=== PATIENT | female | born 1990 | race Caucasian/White ===

== ENCOUNTER 2018-04-25 03:34 | Outpatient (CLI) | payer OTHER ==
[2018-04-25 04:15] VITALS: BP 113/76
[2018-04-25] MEDS ORDERED: SODIUM CHLORIDE FLUSH 0.9% 10 ML SYRINGE ONE (04:56)
[2018-04-25] MEDS ORDERED: TERBUTALINE 1 MG/ML VIAL SUBQ ONE (05:16)
[2018-04-25 05:36] LABS: BILIRUBIN,URINE NEGATIVE (NEGATIVE); GLUCOSE, URINE (UA) NEGATIVE (NEGATIVE); KETONES,URINE (UA) NEGATIVE (NEGATIVE); LEUKOCYTE ESTERASE, URINE NEGATIVE (NEGATIVE); NITRITE,URINE NEGATIVE (NEGATIVE); OCCULT BLOOD,URINE NEGATIVE (NEGATIVE); PH,URINE 6.5 PH (5.0-7.5); PROTEIN,URINE NEGATIVE (NEGATIVE); UROBILINOGEN,URINE 0.2 (NORMAL) E.U./dL (NORMAL)
[2018-04-25 05:48] LABS: CLARITY,URINE CLEAR (CLEAR)
[2018-04-25 06:00] LABS: BACTERIA,URINE Rare /HPF (None Seen); RBC,URINE None Seen /HPF (0-5); SQUAMOUS EPITHELIAL CELL,UR MOD Squamous (<= Few)
--- NOTE | 2018-04-25 06:51 | PROVIDER PROGRESS NOTE ---
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 Patient presented to L&D with regular uterine contraction approx q 9 min, painful in intensity rated 7/10. Denies VB or LOF, no recent coitus. Twins have been concordant in growth on US. Main issue besides Denver-Di nature of is maternal anemia, with a maternal anemia of 25.7% on 04/20/18, for which patient is being considered for Fe infusion. Records from [facility] in [place] obtained and reviewed.. Current Medications: Synthroid PNV Fe Rx for yeast prn Baby ASA (Increased risk HTN with twins) Patient admits to taking her synthroid regularly because she takes that on an empty stomach first thing in the morning when she wakes up, but then goes to work and forgets to take her other meds. O: VSS/AF, maternal pulse 90 NST, RFHR x2 on twins, with contractions q7-9 min on toco V/V: no external lesions, no blood or evidence of LOF on exam. Some thick cheesy d/c consistent with hx of yeast infection noted. No malodorous d/c noted. Cx: looks visually closed. Cx exam confirms L/C cervix Wet Prep: Few Epithelial cells noted, but + for clue cells Tests Ordered: Aptima (send out) UA Neg for nit/le GC/CT (pending) GBS (pending) A/P: # 27 yo 27 3/7 weeks with Monochorionic-Diamniotic twin with contractions which stopped almost immediately after one dose SQ terbutaline 0.25 mg and p.o. hydration, patient no longer feels them and they are no longer detected on monitor. # BV on wet prep: Rx flagyl 500 mg p.o. bid x 7 days (Script given) # Anemia: Encouraged to take her Fe as prescribed, with suggestions on remembering to take her Rx (ie. BR, bedside reminders). Patient education on importance with twin to treat anemia with Fe. Patient voiced understan marichuy. # Rx Folate 1 mg daily for twin gestation (Script given for #100: one p.o. daily) # Home with PTL precautions. F/U here or other facility prn contractions or any other concerns. # F/U with regular OB provider and MFM as scheduled. Objective - Vital Signs/Intake & Output Vital Signs: Vital Signs x48h Temp Pulse Resp BP Pulse Ox 04/25/18 03:45 36.7 C 90 18 113/76 100 - Lab Results Other Labs: Lab Results x24hrs 04/25/18 Range/Units 04:50 Urine Color YELLOW Urine Clarity CLEAR (CLEAR) Urine pH 6.5 (5.0-7.5) PH Ur Specific [place] 1.020 (1.002-1.030) Urine Protein NEGATIVE (NEGATIVE) mg/dL Urine Glucose (UA) NEGATIVE (NEGATIVE) mg/dL Urine Ketones NEGATIVE (NEGATIVE) mg/dL Urine Occult Blood NEGATIVE (NEGATIVE) Urine Nitrite NEGATIVE (NEGATIVE) Urine Bilirubin NEGATIVE (NEGATIVE) Urine Urobilinogen 0.2 (NORMAL) (NORMAL) E.U./dL Ur Leukocyte Esterase NEGATIVE (NEGATIVE) Urine RBC None Seen (0-5) /HPF Urine WBC 0-3 (0-5) /HPF Ur Squamous Epith Cells MOD Squamous H (<= Few) Urine Bacteria Rare (None Seen) /HPF Urine Culture Comments NOT INDICATED
== END 2018-04-25 06:40 | disposition home or self-care (01) ==
LOC: WFO 03:34 → FBP 03:35 → WFO 06:40
PROVIDERS: ATTEND Obstetrics & Gynecology
DX: O30.032 Twin pregnancy, monochorionic/diamniotic, second trimester (principal); Z3A.27 27 weeks gestation of pregnancy; O60.02 Preterm labor without delivery, second trimester
CPT/HCPCS: 81001; 87081; 87086; 87480; 87491; 87510; 87591; 87660; 96374; 99214

== ENCOUNTER 2018-05-03 21:33 | Outpatient (CLI) | payer OTHER ==
[2018-05-03 23:52] VITALS: BP 107/65
== END 2018-05-04 00:01 | disposition home or self-care (01) ==
LOC: WFO 21:33 → FBP 21:35 → WFO 05-04 00:01
PROVIDERS: ATTEND Obstetrics & Gynecology
DX: O36.8132 Decreased fetal movements, third trimester, fetus 2 (principal); O30.003 Twin pregnancy, unspecified number of placenta and unspecified number of amniotic sacs, third trimester; Z3A.28 28 weeks gestation of pregnancy
CPT/HCPCS: 59025; 99213

== ENCOUNTER 2018-07-11 12:46 | Outpatient (CLI) | payer OTHER | END 2018-07-11 12:47 | disposition home or self-care (01) | LOC: DI 12:46 | PROVIDERS: ATTEND Family Medicine | DX: Z82.79 Family history of other congenital malformations, deformations and chromosomal abnormalities (principal); O30.009 Twin pregnancy, unspecified number of placenta and unspecified number of amniotic sacs, unspecified trimester; Z3A.00 Weeks of gestation of pregnancy not specified | CPT/HCPCS: 93306 ==

== ENCOUNTER 2018-09-08 19:29 | Emergency (ER) | payer OTHER ==
--- NOTE | 2018-09-08 20:09 | ED Physician Documentation ---
History of Present Illness - Stated complaint Stated Complaint: HEADACHE/NAUSEA - Chief complaint Chief Complaint: General - History obtained from History obtained from: Patient - History of Present Illness Timing: How many days ago (3) Pain level max: 7 Pain level now: 7 Improved by: nothing Worsened by: sounds, lights - Additonal information Additional information: states similar to prior headaches. States above the left eye. States took motrin without relief. Has had nausea. no vomiting. no fevers. no trauma. 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 : None HEENT: None Psych: None Musculoskeletal: None Derm: None - Past Surgical History Past Surgical History: No - Present Medications Home Medications: Ambulatory Orders Medication Instructions Recorded Confirmed Ibuprofen 800 mg PO TID PRN 01/12/14 09/08/18 Butalb/Acetaminophen/Caffeine 1 cap PO Q6H PRN #14 capsule 09/08/18 [Fioricet 50-300-40 mg Capsule] Etonogestrel/Ethinyl Estradiol 1 applic .ROUTE DAILY 09/08/18 09/08/18 [Nuvaring Vaginal Ring] Levothyroxine Sodium [Synthroid] 50 mcg PO DAILY 09/08/18 09/08/18 - Allergies Allergies/Adverse Reactions: Allergies Allergy/AdvReac Type Severity Reaction Status Date / Time nickel [Nickel] Allergy Rash Verified 01/30/14 19:14 Penicillins Allergy Respiratory Verified 01/30/14 19:14 tramadol Allergy Emesis Verified 09/08/18 19:38 - Social History Does the pt smoke?: No Smoking Status: Never smoker Does the pt drink ETOH?: Yes Does the pt have substance abuse?: No - Immunizations Immunizations are current?: Yes - POLST Patient has POLST: No PD ED PE NORMAL - Vitals Vital signs reviewed: Yes - General General: Alert and oriented X 3, No acute distress, Well developed/nourished - HEENT HEENT: Atraumatic, PERRL, EOMI, Ears normal, Moist mucous membranes, Pharynx benign - Neck Neck: Supple, no meningeal sign, No bony TTP - Cardiac Cardiac: RRR, Strong equal pulses - Respiratory Respiratory: No respiratory distress, Clear bilaterally - Abdomen Abdomen: Soft, Non tender, Non distended - Back Back: No spinal TTP - Derm Derm: Warm and dry - Extremities Extremities: No edema, No calf tenderness / cord - Neuro Neuro: Alert and oriented X 3, 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 She is not breast- feeding. Given Fioricet and headache resolved. We will follow-up with her doctor. No evidence of subarachnoid hemorrhage or tumor. Patient counseled regarding signs and symptoms for which I believe and urgent re-evaluation would be necessary. Patient with good understanding of and agreement to plan and is comfortable going home at this time This document was made in part using voice recognition software. While efforts are made to proofread this document, sound alike and grammatical errors may occur. Departure - Departure Disposition: 01 Home, Self Care Clinical Impression: Migraine Qualifiers: Migraine type: unspecified Status migrainosus presence: without status migrainosus Intractability: not intractable Qualified Code(s): G43.909 - Migraine, unspecified, not intractable, without status migrainosus Condition: Good Instructions: ED Headache Migraine Follow-Up: KRISTINA SYED [Primary Care Provider] - Within 1 week Prescriptions: Butalb/Acetaminophen/Caffeine [Fioricet 50-300-40 mg Capsule] 1 cap PO Q6H PRN #14 capsule PRN Reason: Migraine Comments: You can use the medications as prescribed. Return if you worsen. Follow-up with your doctor for further care. Discharge Date/Time: 09/08/18 21:36
[2018-09-08] MEDS ORDERED: BUTALB/ACETAM/CAFF 50/325/40MG TABLET PO STA (20:42)
[2018-09-08 21:35] VITALS: BP 110/85
== END 2018-09-08 21:36 | disposition home or self-care (01) ==
LOC: ED 19:29
DX: G43.909 Migraine, unspecified, not intractable, without status migrainosus (principal)
CPT/HCPCS: 99282; 99284; A9270

== ENCOUNTER 2018-11-15 08:51 | Emergency (ER) | payer OTHER ==
[2018-11-15 09:04] VITALS: BP 131/74
[2018-11-15] MEDS ORDERED: PROPARACAINE 0.5% OPHTH DROPS 15 ML EACHEYE STA (09:08)
--- NOTE | 2018-11-15 09:35 | ED Physician Documentation ---
PD HPI OPHTHO - Stated complaint Stated Complaint: R EYE POKE - Chief complaint Chief Complaint: Heent - History obtained from History obtained from: Patient, Family - History of Present Illness Timing - onset: Last night Pain level max: 5 Pain level now: 3 Location: Right Quality / character: Aching Associated symptoms: Redness, Tearing Contributing factors: Blunt trauma (States that her 4-month-old child poked her in the eye with the finger.), Wears glasses. 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 : None HEENT: None Psych: None Musculoskeletal: None Derm: None - Past Surgical History Past Surgical History: No - Present Medications Home Medications: Ambulatory Orders Medication Instructions Recorded Confirmed Levothyroxine Sodium [Synthroid] 50 mcg PO DAILY 09/08/18 09/08/18 Polymyxin B/Trimeth Ophth Drop 1 drops RIGHTEYE Q3H 7 Days #1 11/15/18 [Polytrim Ophth Drops] bottle Rizatriptan Benzoate [Maxalt] 11/15/18 - Allergies Allergies/Adverse Reactions: Allergies Allergy/AdvReac Type Severity Reaction Status Date / Time nickel [Nickel] Allergy Rash Verified 11/15/18 09:03 Penicillins Allergy Respiratory Verified 11/15/18 09:03 tramadol Allergy Emesis Verified 11/15/18 09:03 - Social History Does the pt smoke?: No Smoking Status: Never smoker Does the pt drink ETOH?: Yes Does the pt have substance abuse?: No - Immunizations Immunizations are current?: Yes - POLST Patient has POLST: No PD ED PE NORMAL - Vitals Vital signs reviewed: Yes - General General: Alert and oriented X 3, No acute distress - HEENT HEENT: PERRL, EOMI, Other (R eye - Conjunctival injection with tearing. Fluorescein uptake on the inferior aspect of the cornea. No evidence of globe rupture. Pupils are round.) - Derm Derm: Warm and dry - Neuro Neuro: Alert and oriented X 3 Results - Vitals Vitals: Vital Signs - 24 hr 11/15/18 09:01 Temperature 36.8 C Heart Rate 68 Respiratory 16 Rate Blood Pressure 131/74 H O2 Saturation 99 Oxygen O2 Source Room air PD MEDICAL DECISION MAKING - ED course Complexity details: considered differential, d/w patient ED course: Patient with a right eye corneal abrasion. Will place on Polytrim ophthalmic. We will continue supportive care. Patient counseled regarding signs and symptoms for which I believe and urgent re-evaluation would be necessary. Patient with good understanding of and agreement to plan and is comfortable going home at this time This document was made in part using voice recognition software. While efforts are made to proofread this document, sound alike and grammatical errors may occur. Departure - Departure Disposition: Home, Self Care Clinical Impression: Corneal abrasion, right Qualifiers: Encounter type: initial encounter Qualified Code(s): S05.01XA - Injury of conjunctiva and corneal abrasion without foreign body, right eye, initial encounter Condition: Good Instructions: ED Eye Injury Corneal Abrasion Follow-Up: KRISTINA SYED [Primary Care Provider] - Within 1 week Prescriptions: Polymyxin B/Trimeth Ophth Drop [Polytrim Ophth Drops] 1 drops RIGHTEYE Q3H 7 Days #1 bottle Comments: Return if you worsen. Use the drops as prescribed. Discharge Date/Time: 11/15/18 09:58
== END 2018-11-15 09:58 | disposition home or self-care (01) ==
LOC: ED 08:51
DX: S05.01XA Injury of conjunctiva and corneal abrasion without foreign body, right eye, initial encounter (principal); W50.0XXA Accidental hit or strike by another person, initial encounter
CPT/HCPCS: 99282; 99283; J3490

== ENCOUNTER 2018-12-03 18:05 | Emergency (ER) | payer OTHER ==
[2018-12-03] MEDS ORDERED: diphenhydrAMINE INJ 50 MG/ML VIAL IVP STA (18:25)
[2018-12-03] MEDS ORDERED: METOCLOPRAMIDE 10 MG/2 ML VIAL IVP STA (18:25)
[2018-12-03] MEDS ORDERED: SODIUM CHLORIDE 0.9% 1,000 ML IV ONE (18:25)
[2018-12-03] MEDS ORDERED: KETOROLAC 15 MG/ML VIAL IVP STA (18:25)
--- NOTE | 2018-12-03 18:28 | ED Physician Documentation ---
PD HPI ALTERED MENTAL STATUS - Stated complaint Stated Complaint: FEVER, RASH, BODY PAIN - Chief complaint Chief Complaint: Neuro - History obtained from History obtained from: Patient - History of Present Illness Timing - onset: Last night (Since last night she had a fever up to 101 with a non-itchy rash on the face and arms. Her daughter and subsequently her were sick with similar illnesses recently. No recent travel. She has body aches. Had some sinus pain over the weekend but that is better now. No sore throat. No possibility of .) Review of Systems Ten Systems: 10 systems reviewed and negative Constitutional: reports: Fever, Chills, Myalgias, Fatigue Nose: denies: Rhinorrhea / runny nose, Congestion Cardiac: denies: Palpitations Respiratory: denies: Dyspnea, Cough GI: reports: Nausea. 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 : None HEENT: None Psych: None Musculoskeletal: None Derm: None - Past Surgical History Past Surgical History: No - Present Medications Home Medications: Ambulatory Orders Medication Instructions Recorded Confirmed Levothyroxine Sodium [Synthroid] 50 mcg PO DAILY 09/08/18 09/08/18 Polymyxin B/Trimeth Ophth Drop 1 drops RIGHTEYE Q3H 7 Days #1 11/15/18 [Polytrim Ophth Drops] bottle Rizatriptan Benzoate [Maxalt] 11/15/18 - Allergies Allergies/Adverse Reactions: Allergies Allergy/AdvReac Type Severity Reaction Status Date / Time nickel [Nickel] Allergy Rash Verified 11/15/18 09:03 Penicillins Allergy Respiratory Verified 11/15/18 09:03 tramadol Allergy Emesis Verified 11/15/18 09:03 - Social History Does the pt smoke?: No Smoking Status: Never smoker Does the pt drink ETOH?: Yes Does the pt have substance abuse?: No - Immunizations Immunizations are current?: Yes - POLST Patient has POLST: No PD ED PE NORMAL - Vitals Vital signs reviewed: Yes - General General: Alert and oriented X 3, No acute distress - HEENT HEENT: PERRL, EOMI, Pharynx benign, Other (Light sensitive) - Neck Neck: Supple, no meningeal sign, No bony TTP - Cardiac Cardiac: RRR, No murmur - Respiratory Respiratory: No respiratory distress, Clear bilaterally - Abdomen Abdomen: Non tender - Derm Derm: Normal color, Other - Neuro Neuro: Alert and oriented X 3, Normal speech (Mild macular rash mostly on the face) Results - Vitals Vitals: Vital Signs - 24 hr 12/03/18 18:09 Temperature 37.5 C Heart Rate 99 Respiratory 18 Rate Blood Pressure 119/96 H O2 Saturation 99 Oxygen O2 Source Room air - Labs Labs: Laboratory Tests 12/03/18 12/03/18 12/03/18 18:32 18:32 18:41 WBC 3.0 L RBC 4.12 L Hgb 12.2 Hct 36.3 L MCV 88.1 MCH 29.6 MCHC 33.6 RDW 12.7 Plt Count 164 MPV 10.9 H Neut # (Auto) 2.2 Lymph # (Auto) 0.5 L [place] # (Auto) 0.2 Eos # (Auto) 0.0 Baso # (Auto) 0.0 Absolute Nucleated RBC 0.00 Nucleated RBC % 0.0 Sodium 136 Potassium 3.2 L Chloride 102 Carbon Dioxide 23 Anion Gap 11.0 BUN 7 Creatinine 0.6 Estimated GFR (MDRD) 117 Glucose 116 H Calcium 8.4 L Total Bilirubin 0.8 AST 18 ALT 14 Alkaline Phosphatase 53 Total Protein 6.9 Albumin 3.7 Globulin 3.2 Albumin/Globulin Ratio 1.2 Lipase 26 Influenza A (Rapid) Negative Influenza B (Rapid) Negative PD MEDICAL DECISION MAKING - ED course ED course: 28-year-old woman presents with a viral syndrome, everyone in the family had it. Corroborated by her lab work. Flu negative. She has had a migraine headache, treated with Reglan, fluids and Benadryl and Toradol and feeling much better. Departure - Departure Disposition: 01 Home, Self Care Clinical Impression: Viral syndrome Migraine Qualifiers: Migraine type: with aura Status migrainosus presence: with status migrainosus Intractability: not intractable Qualified Code(s): G43.101 - Migraine with aura, not intractable, with status migrainosus Instructions: ED Headache Migraine, ED Viral Syndrome Comments: Return for new worsening symptoms, return Friday or if not better, anytime if worse. Forms: Activity restrictions
[2018-12-03 18:40] LABS: BASOPHILS % (AUTO) 0.3 %; EOSINOPHILS % (AUTO) 0.3 %; RED CELL DISTRIBUTION WIDTH 12.7 % (12.0-15.0)
[2018-12-03 18:45] LABS: HGB - HEMOGLOBIN 12.2 g/dL (12.0-16.0); LYMPHOCYTES # (AUTO) 0.5 10^3/uL (1.5-3.5); LYMPHOCYTES % (AUTO) 16.9 %; MEAN CORPUSCULAR HEMOGLOBIN 29.6 pg (27.0-31.0); MEAN CORPUSCULAR HGB CONC 33.6 g/dL (32.0-36.0); MEAN CORPUSCULAR VOLUME 88.1 fL (81.0-99.0); MEAN PLATELET VOLUME 10.9 fL (7.9-10.8); MONOCYTES # (AUTO) 0.2 10^3/uL (0.0-1.0); MONOCYTES % (AUTO) 7.4 %; NEUTROPHILS # (AUTO) 2.2 10^3/uL (1.5-6.6); NEUTROPHILS % (AUTO) 74.8 %; PLT - PLATELET COUNT 164 10^3/uL (130-450); RED BLOOD COUNT 4.12 10^6/uL (4.20-5.40)
[2018-12-03 18:52] LABS: ALBUMIN 3.7 g/dL (3.2-5.5); ALBUMIN/GLOBULIN RATIO 1.2 (1.0-2.2); BILIRUBIN,TOTAL 0.8 mg/dL (0.2-1.0); CALCIUM 8.4 mg/dL (8.5-10.3); CREATININE 0.6 mg/dL (0.4-1.0); TOTAL PROTEIN 6.9 g/dL (6.7-8.2)
[2018-12-03 19:33] VITALS: BP 128/86
== END 2018-12-03 19:52 | disposition home or self-care (01) ==
LOC: ED 18:05
DX: B34.9 Viral infection, unspecified (principal); G43.101 Migraine with aura, not intractable, with status migrainosus
CPT/HCPCS: 36415; 80053; 83690; 85025; 87275; 87276; 96361; 96374; 99282; 99284; J1200; J2765

== ENCOUNTER 2019-05-01 13:39 | Emergency (ER) | payer OTHER ==
[2019-05-01 14:07] LABS: BILIRUBIN,URINE NEGATIVE (NEGATIVE); GLUCOSE, URINE (UA) NEGATIVE (NEGATIVE); KETONES,URINE (UA) 15 mg/dL (NEGATIVE); LEUKOCYTE ESTERASE, URINE NEGATIVE (NEGATIVE); NITRITE,URINE NEGATIVE (NEGATIVE); OCCULT BLOOD,URINE NEGATIVE (NEGATIVE); PH,URINE 5.5 PH (5.0-7.5); PROTEIN,URINE TRACE mg/dL (NEGATIVE); UROBILINOGEN,URINE 0.2 (NORMAL) E.U./dL (NORMAL)
[2019-05-01 14:09] LABS: CLARITY,URINE CLEAR (CLEAR); HCG UR QUAL NEGATIVE
[2019-05-01 14:33] LABS: BASOPHILS # (AUTO) 0.1 10^3/uL (0.0-0.1); BASOPHILS % (AUTO) 0.4 %; EOSINOPHILS # (AUTO) 0.1 10^3/uL (0.0-0.7); EOSINOPHILS % (AUTO) 0.4 %; HGB - HEMOGLOBIN 14.8 g/dL (12.0-16.0); LYMPHOCYTES # (AUTO) 1.1 10^3/uL (1.5-3.5); MEAN CORPUSCULAR HEMOGLOBIN 28.7 pg (27.0-31.0); MEAN CORPUSCULAR HGB CONC 34.1 g/dL (32.0-36.0); MEAN CORPUSCULAR VOLUME 84.3 fL (81.0-99.0); MEAN PLATELET VOLUME 10.2 fL (7.9-10.8); MONOCYTES # (AUTO) 0.6 10^3/uL (0.0-1.0); MONOCYTES % (AUTO) 3.5 %; NEUTROPHILS % (AUTO) 89.2 %; PLT - PLATELET COUNT 348 10^3/uL (130-450); RED BLOOD COUNT 5.15 10^6/uL (4.20-5.40); RED CELL DISTRIBUTION WIDTH 12.5 % (12.0-15.0); WHITE BLOOD COUNT 17.9 x10^3/uL (4.8-10.8)
[2019-05-01] MEDS ORDERED: ONDANSETRON 4 MG/2 ML VIAL IVP STA ×2 (14:45→17:06)
[2019-05-01] MEDS ORDERED: SODIUM CHLORIDE 0.9% 1,000 ML IV ONE (14:45)
[2019-05-01] MEDS ORDERED: LOPERAMIDE 2 MG CAPSULE PO STA (14:45)
--- NOTE | 2019-05-01 14:46 | ED Physician Documentation ---
PD HPI ABD PAIN - Stated complaint Stated Complaint: VOMITING/DIARRHEA - Chief complaint Chief Complaint: Abd Pain - History obtained from History obtained from: Patient - History of Present Illness Timing - onset: Today (Became acutely ill early this morning with vomiting and diarrhea. Subsequently developed some abdominal pain from the retching but that was delayed. Has had some small spots of blood in the vomit at times but no large-volume hematemesis. 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 HEENT: None Psych: None Musculoskeletal: None Derm: None - Past Surgical History Past Surgical History: No - Present Medications Home Medications: Ambulatory Orders Medication Instructions Recorded Confirmed Levothyroxine Sodium [Synthroid] 50 mcg PO DAILY 09/08/18 09/08/18 Polymyxin B/Trimeth Ophth Drop 1 drops RIGHTEYE Q3H 7 Days #1 11/15/18 [Polytrim Ophth Drops] bottle Rizatriptan Benzoate [Maxalt] 11/15/18 - Allergies Allergies/Adverse Reactions: Allergies Allergy/AdvReac Type Severity Reaction Status Date / Time nickel [Nickel] Allergy Rash Verified 11/15/18 09:03 Penicillins Allergy Respiratory Verified 11/15/18 09:03 tramadol Allergy Emesis Verified 11/15/18 09:03 - Social History Does the pt smoke?: No Smoking Status: Never smoker Does the pt drink ETOH?: Yes Does the pt have substance abuse?: No - Immunizations Immunizations are current?: Yes - POLST Patient has POLST: No PD ED PE NORMAL - Vitals Vital signs reviewed: Yes - General General: Alert and oriented X 3, Other (Retching and uncomfortable) - Abdomen Abdomen: Normal bowel sounds, Soft, Non tender - Back Back: No CVA TTP, No spinal TTP - Derm Derm: Normal color, Warm and dry - Extremities Extremities: No edema, No calf tenderness / cord - Neuro Neuro: Alert and oriented X 3, 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, No motor deficit, No sensory deficit, Normal speech Results - Vitals Vitals: Vital Signs - 24 hr 05/01/19 05/01/19 05/01/19 13:43 16:58 17:46 Temperature 36.9 C Heart Rate 90 102 H 104 H Respiratory 16 16 16 Rate Blood Pressure 127/86 H 132/79 H 133/88 H O2 Saturation 100 97 99 05/01/19 18:10 Temperature Heart Rate 94 Respiratory 14 Rate Blood Pressure 122/77 O2 Saturation 100 Oxygen O2 Source Room air - Labs Labs: Laboratory Tests 05/01/19 05/01/19 05/01/19 13:52 14:25 14:25 WBC 17.9 H RBC 5.15 Hgb 14.8 Hct 43.4 MCV 84.3 MCH 28.7 MCHC 34.1 RDW 12.5 Plt Count 348 MPV 10.2 Neut # (Auto) 16.0 H Lymph # (Auto) 1.1 L [place] # (Auto) 0.6 Eos # (Auto) 0.1 Baso # (Auto) 0.1 Absolute Nucleated RBC 0.00 Nucleated RBC % 0.0 Sodium 135 Potassium 3.4 L Chloride 102 Carbon Dioxide 22 Anion Gap 11.0 BUN 13 Creatinine 0.6 Estimated GFR (MDRD) 117 Glucose 127 H Calcium 8.9 Total Bilirubin 1.1 H AST 18 ALT 16 Alkaline Phosphatase 57 Total Protein 8.0 Albumin 4.3 Globulin 3.7 Albumin/Globulin Ratio 1.2 Lipase 23 Urine Color YELLOW Urine Clarity CLEAR Urine pH 5.5 Ur Specific [place] >=1.030 H Urine Protein TRACE Urine Glucose (UA) NEGATIVE Urine Ketones 15 H Urine Occult Blood NEGATIVE Urine Nitrite NEGATIVE Urine Bilirubin NEGATIVE Urine Urobilinogen 0.2 (NORMAL) Ur Leukocyte Esterase NEGATIVE Ur Microscopic Review NOT INDICATED Urine Culture Comments NOT INDICATED Urine HCG, Qual NEGATIVE PD MEDICAL DECISION MAKING - ED course ED course: 28-year-old woman with's presents with what seems like gastroenteritis, vomiting and diarrhea, minimal abdominal pain and benign examination. Her course was prolonged by fairly intractable nausea. Eventually had good relief with Phenergan but actually developed an akathisia with that. She had passed an oral challenge and requested discharge. I offered her an observation stay given the volume of medications it took to get her nausea under control which she decl ined. Departure - Departure Disposition: 01 Home, Self Care Clinical Impression: Diarrhea Qualifiers: Diarrhea type: presumed infectious Qualified Code(s): R19.7 - Diarrhea, unspecified Vomiting Qualifiers: Vomiting type: unspecified Vomiting Intractability: intractable Nausea presence: with nausea Qualified Code(s): R11.2 - Nausea with vomiting, unspecified Condition: Good Record reviewed to determine appropriate education?: Yes Instructions: ED Vomiting Diarrhea Nonspecific Ad Comments: Return in 12 hours if not better, anytime for new or worsening symptoms
[2019-05-01 14:49] LABS: ALBUMIN 4.3 g/dL (3.2-5.5); ALBUMIN/GLOBULIN RATIO 1.2 (1.0-2.2); BILIRUBIN,TOTAL 1.1 mg/dL (0.2-1.0); CALCIUM 8.9 mg/dL (8.5-10.3); CREATININE 0.6 mg/dL (0.4-1.0)
[2019-05-01] MEDS ORDERED: METOCLOPRAMIDE 10 MG/2 ML VIAL IVP STA (16:06)
[2019-05-01] MEDS ORDERED: PROMETHAZINE INJ 25 MG in SODIUM CHLORIDE 0.9% 50 ML IV STA (17:33)
[2019-05-01 18:16] VITALS: BP 122/77
[2019-05-01] MEDS ORDERED: ONDANSETRON ODT 4 MG Prepack 2 TL STA (18:29)
== END 2019-05-01 18:49 | disposition home or self-care (01) ==
LOC: ED 13:39
DX: R11.2 Nausea with vomiting, unspecified (principal); R19.7 Diarrhea, unspecified
CPT/HCPCS: 36415; 80053; 81003; 81025; 83690; 85025; 96361; 96365; 96375; 96376; 99284; A9270; J2765; J7040; 81001; 87086